=== PATIENT | female | born 1950 | race Caucasian/White ===

== ENCOUNTER 2017-09-04 20:29 | Emergency (ER) | payer MEDICARE, MEDICAID ==
[2017-09-04] MEDS ORDERED: Sodium Chloride 0.9% 10 ML Syringe FLUSH PRN (20:50)
[2017-09-04] MEDS ORDERED: Sodium Chloride 0.9% 500 ML IV ONE (20:50)
[2017-09-04] MEDS ORDERED: Metoprolol Tartrate 5 MG/5 ML SDV IVPUSH ONE (20:52)
[2017-09-04] MEDS ORDERED: LORazepam 2 MG/ML SDV IVPUSH ONE (20:52)
[2017-09-04] MEDS ORDERED: Metoprolol Tartrate 50 MG Tab PO ONE (21:14)
--- NOTE | 2017-09-04 21:37 | EDM.PDOC ---
ED HPI GENERAL MEDICAL PROBLEM - General Chief Complaint: Cardiovascular Problem Stated Complaint: DON AMB Time Seen by Provider: 09/04/17 20:38 Source of Information: Reports: Patient, EMS, RN Notes Reviewed - History of Present Illness INITIAL COMMENTS - FREE TEXT/NARRATIVE: 67-year-old female who is brought in with generalized weakness, severe dizziness. Apparently she was standing, walking been she began to become very lightheaded and dizzy. He states it felt like the room was moving around and she felt as though she were about to pass out. She did get to her phone, called her sister for help. I believe she used her lifeline type unit than to contact EMS. Upon their arrival they state she was in "SVT. They Had her Valsalva and rate did come down to the 110-120 range. She's had no chest pain or difficulty breathing. She continues to feel somewhat lightheaded and dizzy on arrival to ED. No abdominal pain nausea vomiting or diarrhea. She had been feeling fine earlier today without other unusual symptomatology. - Related Data Allergies Allergy/AdvReac Type Severity Reaction Status Date / Time No Known Allergies Allergy Verified 09/04/17 20:32 Home Meds: Home Meds Canagliflozin/Metformin HCl [Invokamet 50-500 mg Tablet] 1 tab PO BID 09/04/17 [ History] Cholecalciferol (Vitamin D3) [Vitamin D3] 1,000 unit PO DAILY 09/04/17 [History] Fluticasone Propionate [Flonase Allergy Relief] 2 spray NASBOTH DAILY 09/04/17 [ History] SitaGLIPtin [Januvia] 100 mg PO DAILY 09/04/17 [History] Valsartan/Hydrochlorothiazide [Valsartan-Hctz 160-12.5 mg Tab] 1 tab PO DAILY [History] Past Medical History HEENT History: Reports: Impaired Vision Other HEENT History: Wears glasses Cardiovascular History: Reports: Hypertension Endocrine/Metabolic History: Reports: Diabetes, Type II - Past Surgical History Endocrine Surgical History: Reports: Thyroidectomy Social & Family History - Tobacco Use Smoking Status *Q: Never Smoker - Recreational Drug Use Recreational Drug Use: No ED ROS GENERAL - Review of Systems Review Of Systems: See Below Constitutional: Denies: Fever, Chills, Diaphoresis HEENT: Denies: Throat Pain Respiratory: Denies: Shortness of Breath, Wheezing Cardiovascular: Reports: Lightheadedness, Palpitations. Denies: Chest Pain GI/Abdominal: Denies: Abdominal Pain, Nausea, Vomiting Musculoskeletal: Reports: No Symptoms Skin: Reports: No Symptoms Neurological: Reports: Dizziness. Denies: Numbness, Tingling, Trouble Speaking , Weakness ED EXAM, GENERAL - Physical Exam Exam: See Below General Appearance: Alert, Anxious Eye Exam: Bilateral Eye: PERRL, Other (Patient has disconjugate gaze, chronic) Ears: Normal External Exam Throat/Mouth: Normal Inspection, Normal Oropharynx Head: Atraumatic. No: Facial Swelling Neck: Supple, Full Range of Motion Respiratory/Chest: No Respiratory Distress, Lungs Clear, Normal Breath Sounds Cardiovascular: Tachycardia GI/Abdominal: Soft, Non-Tender. No: Guarding Back Exam: No: CVA Tenderness (L), CVA Tenderness (R) Extremities: Normal Inspection, Normal Range of Motion. No: Pedal Edema Neurological: Alert, Oriented, No Motor/Sensory Deficits Skin Exam: Warm, Dry, Normal Color EKG INTERPRETATION EKG Date: 09/04/17 Rhythm: Other (Sinus tach) Rate (Beats/Min): 109 [place]: Normal ST-T: Other (Nonspecific ST changes anterior and lateral leads) Course - Vital Signs Last Recorded V/S: Last Vital Signs Temp 96.4 F 09/04/17 20:32 Pulse 115 H 09/04/17 21:18 Resp 18 09/04/17 20:32 BP 146/96 H 09/04/17 21:18 Pulse Ox 98 09/04/17 20:32 - Orders/Labs/Meds Orders: Active Orders 24 hr Category Date Time Status EKG 12 Lead [EKG Documentation Completion] [RC] STAT Care 09/04/17 20:50 Active Holter Monitor 48 Hours [RC] .PRN Care 09/05/17 00:30 Ordered Peripheral IV Care [RC] . DIRECTED Care 09/04/17 20:51 Active Chest 1V Frontal [CR] Stat Exams 09/04/17 21:36 Taken Sodium Chloride 0.9% [Saline Flush] Med 09/04/17 20:50 Active 10 ml FLUSH ASDIRECTED PRN Peripheral IV Insertion Adult [OM.PC] Stat Oth 09/04/17 20:50 Ordered Medication Orders Sodium Chloride (Saline Flush) 10 ml FLUSH ASDIRECTED PRN PRN Reason: Keep Vein Open Last Admin: 09/04/17 21:02 Dose: 10 ml Labs: Laboratory Tests 09/04/17 09/04/17 09/04/17 Range/Units 20:38 20:40 20:40 WBC 24.75 H (3.98-10.04) K/mm3 RBC 5.94 H (3.98-5.22) M/mm3 Hgb 16.0 H (11.2-15.7) gm/L Hct 49.3 H (34.1-44.9) % MCV 83.0 (79.4-94.8) fl MCH 26.9 (25.6-32.2) pg MCHC 32.5 (32.2-35.5) g/dl RDW Std Deviation 44.1 (36.4-46.3) fL Plt Count 445 H (182-369) K/mm3 MPV 10.3 (9.4-12.3) fl Neut % (Auto) 88.3 H (34.0-71.1) % Lymph % (Auto) 4.8 L (19.3-51.7) % [place] % (Auto) 5.3 (4.7-12.5) % Eos % (Auto) 1.1 (0.7-5.8) Baso % (Auto) 0.2 (0.1-1.2) % Neut # (Auto) 21.86 H (1.56-6.13) K/mm3 Lymph # (Auto) 1.20 (1.18-3.74) K/mm3 [place] # (Auto) 1.32 H (0.24-0.36) K/mm3 Eos # (Auto) 0.26 (0.04-0.36) K/mm3 Baso # (Auto) 0.04 (0.01-0.08) K/mm3 Manual Slide Review Abnormal smear Sodium 142 (136-145) mEq/L Potassium 3.4 L (3.5-5.1) mEq/L Chloride 102 (98-107) mEq/L Carbon Dioxide 27 (21-32) mEq/L Anion Gap 16.4 H (5-15) BUN 24 H (7-18) mg/dL Creatinine 1.0 (0.55-1.02) mg/dL Est Cr Clr Drug Dosing TNP Estimated GFR (MDRD) 55 (>60) mL/min BUN/Creatinine Ratio 24.0 H (14-18) Glucose 168 H (80-115) mg/dL POC Glucose 150 H (80-115) mg/dL Calcium 9.1 (8.5-10.1) mg/dL Total Bilirubin 0.4 (0.2-1.0) mg/dL AST 26 (15-37) U/L ALT 48 (14-59) U/L Alkaline Phosphatase 118 H (46-116) U/L Total Protein 7.9 (6.4-8.2) g/dl Albumin 3.7 (3.4-5.0) g/dl Globulin 4.2 gm/dL Albumin/Globulin Ratio 0.9 L (1-2) Urine Color (Yellow) Urine Appearance (Clear) Urine pH (5.0-8.0) Ur Specific Combs (1.005-1.030) Urine Protein (Negative) Urine Glucose (UA) (Negative) Urine Ketones (Negative) Urine Occult Blood (Negative) Urine Nitrite (Negative) Urine Bilirubin (Negative) Urine Urobilinogen (0.2-1.0) Ur Leukocyte Esterase (Negative) Urine RBC (0-5) /hpf Urine WBC (0-5) /hpf Ur Epithelial Cells (0-5) /hpf Urine Bacteria (FEW) /hpf Hyaline Casts (0-5) /lpf Urine Mucus (FEW) /hpf 09/04/17 Range/Units 22:00 WBC (3.98-10.04) K/mm3 RBC (3.98-5.22) M/mm3 Hgb (11.2-15.7) gm/L Hct (34.1-44.9) % MCV (79.4-94.8) fl MCH (25.6-32.2) pg MCHC (32.2-35.5) g/dl RDW Std Deviation (36.4-46.3) fL Plt Count (182-369) K/mm3 MPV (9.4-12.3) fl Neut % (Auto) (34.0-71.1) % Lymph % (Auto) (19.3-51.7) % [place] % (Auto) (4.7-12.5) % Eos % (Auto) (0.7-5.8) Baso % (Auto) (0.1-1.2) % Neut # (Auto) (1.56-6.13) K/mm3 Lymph # (Auto) (1.18-3.74) K/mm3 [place] # (Auto) (0.24-0.36) K/mm3 Eos # (Auto) (0.04-0.36) K/mm3 Baso # (Auto) (0.01-0.08) K/mm3 Manual Slide Review Sodium (136-145) mEq/L Potassium (3.5-5.1) mEq/L Chloride (98-107) mEq/L Carbon Dioxide (21-32) mEq/L Anion Gap (5-15) BUN (7-18) mg/dL Creatinine (0.55-1.02) mg/dL Est Cr Clr Drug Dosing Estimated GFR (MDRD) (>60) mL/min BUN/Creatinine Ratio (14-18) Glucose (80-115) mg/dL POC Glucose (80-115) mg/dL Calcium (8.5-10.1) mg/dL Total Bilirubin (0.2-1.0) mg/dL AST (15-37) U/L ALT (14-59) U/L Alkaline Phosphatase (46-116) U/L Total Protein (6.4-8.2) g/dl Albumin (3.4-5.0) g/dl Globulin gm/dL Albumin/Globulin Ratio (1-2) Urine Color Yellow (Yellow) Urine Appearance Clear (Clear) Urine pH 6.5 (5.0-8.0) Ur Specific Combs 1.020 (1.005-1.030) Urine Protein Negative (Negative) Urine Glucose (UA) 2+ H (Negative) Urine Ketones 1+ H (Negative) Urine Occult Blood Negative (Negative) Urine Nitrite Negative (Negative) Urine Bilirubin Negative (Negative) Urine Urobilinogen 0.2 (0.2-1.0) Ur Leukocyte Esterase Negative (Negative) Urine RBC 0-5 (0-5) /hpf Urine WBC 0-5 (0-5) /hpf Ur Epithelial Cells 0-5 (0-5) /hpf Urine Bacteria Rare (FEW) /hpf Hyaline Casts 0-5 (0-5) /lpf Urine Mucus Few (FEW) /hpf Meds: Medications Generic Name Dose Route Start Last Admin Trade Name Panchito PRN Reason Stop Dose Admin Sodium Chloride 10 ml 09/04/17 20:50 09/04/17 21:02 Saline Flush FLUSH 10 ml ASDIRECTED PRN Administration Keep Vein Open Discontinued Medications Generic Name Dose Route Start Last Admin Trade Name Panchito PRN Reason Stop Dose Admin Sodium Chloride 500 mls @ 999 mls/hr 09/04/17 20:50 09/04/17 21:01 Normal Saline IV 09/04/17 21:20 999 mls/hr .BOLUS ONE Administration Lorazepam 0.25 mg 09/04/17 20:52 09/04/17 21:01 Ativan IVPUSH 09/04/17 20:53 0.25 mg ONETIME ONE Administration Metoprolol Tartrate 5 mg 09/04/17 20:52 09/04/17 21:01 Lopressor IVPUSH 09/04/17 20:53 5 mg ONETIME ONE Administration Metoprolol Tartrate 50 mg 09/04/17 21:14 09/04/17 21:18 Lopressor PO 09/04/17 21:15 50 mg ONETIME ONE Administration - Re-Assessments/Exams Free Text/Narrative Re-Assessment/Exam: 09/05/17 00:01 Patient was in sinus tach on arrival to ED, rate about 110-120. Rate then did go even up to 1:30. At that Time we did give lopressor 5 mg IV followed by metoprolol 50 mg by mouth. With that her rate has come down to the upper 90s. Blood pressure has remained good. We've given 1 L of normal saline. WBC did come back elevated. With that even though she has no apparent signs for infection I have checked chest x-ray, catheter urine and also influenza screen. That all did come back normal. She feels tremendously better. She has been able to stand and ambulate without difficulty. Will send home with 48 hr holter moniter if available. Departure - Departure Time of Disposition: 23:55 Disposition: Home, Self-Care 01 Condition: Fair Clinical Impression: Near syncope, Supraventricular tachycardia Referrals: PCP,None [Primary Care Provider] - Forms: ED Department Discharge Additional Instructions: Upon ambulance arrival your heart rate was going quite fast and that very likely contributed to the severe dizziness you felt at that time. We are sending you home with a 48 hour Holter monitor to record your heart activity for the next 48 hours. Continue to drink plenty of water to maintain hydration. Follow-up with your regular medical provider early next week for recheck, return to ED as needed if symptoms worsening in any way. - My Orders Last 24 Hours: My Active Orders 09/04/17 20:50 EKG 12 Lead [EKG Documentation Completion] [RC] STAT Sodium Chloride 0.9% [Saline Flush] 10 ml FLUSH ASDIRECTED PRN Peripheral IV Insertion Adult [OM.PC] Stat 09/04/17 20:51 Peripheral IV Care [RC] . DIRECTED 09/04/17 21:36 Chest 1V Frontal [CR] Stat 09/05/17 00:30 Holter Monitor 48 Hours [RC] .PRN - Assessment/Plan Last 24 Hours: My Active Orders 09/04/17 20:50 EKG 12 Lead [EKG Documentation Completion] [RC] STAT Sodium Chloride 0.9% [Saline Flush] 10 ml FLUSH ASDIRECTED PRN Peripheral IV Insertion Adult [OM.PC] Stat 09/04/17 20:51 Peripheral IV Care [RC] . DIRECTED 09/04/17 21:36 Chest 1V Frontal [CR] Stat 09/05/17 00:30 Holter Monitor 48 Hours [RC] .PRN
--- NOTE | 2017-09-05 10:05 | CR ---
Chest: Portable view of the chest was obtained. Comparison: No prior chest x-ray. Heart size is normal. Tortuous thoracic aorta is seen. Lungs are clear. Bony structures are grossly intact. Impression: 1. Nothing acute is identified on portable chest x-ray. Diagnostic code #1
== END 2017-09-05 00:37 | disposition home or self-care (01) ==
LOC: JD.ED 20:29
DX: R55 Syncope and collapse (principal); I47.1 Supraventricular tachycardia; I10 Essential (primary) hypertension; E11.9 Type 2 diabetes mellitus without complications; Z79.899 Other long term (current) drug therapy
CPT/HCPCS: 36415; 71045; 80053; 81001; 82962; 85025; 87804; 93005; 93225; 93226; 96361; 96374; 96375; 99285; A9270; J2060; J7040; J7050; P9612; 93010; 99284-25; J3490

== ENCOUNTER 2018-03-24 17:09 | Emergency (ER) | payer OTHER, MEDICARE, MEDICAID ==
[2018-03-24] MEDS ORDERED: Lidocaine 1% with EPINEPHrine 1:100,000 20 ML MDV INJECT ONE (17:30)
--- NOTE | 2018-03-24 17:53 | EDM.PDOC ---
ED HPI GENERAL MEDICAL PROBLEM - General Chief Complaint: Laceration Stated Complaint: LIP LAC Time Seen by Provider: 03/24/18 17:20 Source of Information: Reports: Patient, Family History Limitations: Reports: Other (Mentally handicapped) - History of Present Illness INITIAL COMMENTS - FREE TEXT/NARRATIVE: Patient is a 68-year-old female presents ED complaining of lower lip laceration. Patient was helping set tables up and fell on a incline hitting her face on the ground. There was no loss of consciousness. She suffered a irregular laceration to the lower lip with bleeding controlled with direct pressure. Abrasion to the upper lip and nose. There was no loss consciousness. Patient denies any additional discomfort to her face, neck, chest, extremities. There is no nausea or vomiting. No numbness or tingling to extremities. She did ambulate into the ED on her own accord. lower lip Pain Score (Numeric/FACES): 4 - Related Data Allergies Allergy/AdvReac Type Severity Reaction Status Date / Time No Known Allergies Allergy Verified 03/24/18 17:18 Home Meds: Home Meds Canagliflozin/Metformin HCl [Invokamet 50-500 mg Tablet] 1 tab PO BID 09/04/17 [ History] Cholecalciferol (Vitamin D3) [Vitamin D3] 1,000 unit PO DAILY 09/04/17 [History] Fluticasone Propionate [Flonase Allergy Relief] 2 spray NASBOTH DAILY 09/04/17 [ History] SitaGLIPtin [Januvia] 100 mg PO DAILY 09/04/17 [History] Valsartan/Hydrochlorothiazide [Valsartan-Hctz 160-12.5 mg Tab] 1 tab PO DAILY [History] Past Medical History HEENT History: Reports: Impaired Vision Other HEENT History: Wears glasses Cardiovascular History: Reports: Hypertension Psychiatric History: Reports: Learning Disability Endocrine/Metabolic History: Reports: Diabetes, Type II - Past Surgical History Endocrine Surgical History: Reports: Thyroidectomy Social & Family History - Family History Family Medical History: Noncontributory - Tobacco Use Smoking Status *Q: Never Smoker - Caffeine Use Caffeine Use: Reports: Coffee - Recreational Drug Use Recreational Drug Use: No ED ROS GENERAL - Review of Systems Review Of Systems: ROS reveals no pertinent complaints other than HPI. ED EXAM, SKIN/RASH Exam: See Below Exam Limited By: No Limitations General Appearance: Alert, WD/WN, No Apparent Distress Eye Exam: Bilateral Eye: EOMI, Normal Inspection, Nystagmus (None noted), PERRL Ears: Hearing Grossly Normal Nose: Nasal Tenderness, Other (Slight abrasion noted to the distal tip of the nose. No epistaxis.) Throat/Mouth: Normal Oropharynx, Normal Voice, No Airway Compromise. No: Normal Lips (Approximate 0.5 UA are laceration to the lower lip. Teeth are intact with no loose or tenderness noted to the upper and lower palate.) Head: Other (Superficial abrasion to the upper lip and tip of the nose. No tenderness noted with palpation of the facies.) Neck: Normal Inspection, Supple, Non-Tender, Full Range of Motion Respiratory/Chest: No Respiratory Distress, Lungs Clear, Normal Breath Sounds, No Accessory Muscle Use Cardiovascular: Normal Peripheral Pulses, Regular Rate, Rhythm Peripheral Pulses: 2+: Radial (L) GI/Abdominal: Normal Bowel Sounds, Soft, Non-Tender Back Exam: Normal Inspection Extremities: Normal Inspection, Normal Range of Motion, Non-Tender Neurological: Alert, Oriented, CN II-XII Intact, Normal Cognition, Normal Gait, No Motor/Sensory Deficits Psychiatric: Normal Affect, Normal Mood Skin: Warm, Dry, Normal Color ED SKIN PROCEDURES - Laceration/Wound Repair Lower Other Lac/Wound length In cm: 0.5 (lower lip) Appearance: Subcutaneous, Irregular, Clean Distal NVT: Neuro & Vascular Intact, No Tendon Injury Anesthetic Type: Local Local Anesthesia - Lidocaine (Xylocaine): 1% with EPI Local Anesthetic Volume: 2cc Skin Prep: Saline, Sterile Drape Exploration/Debridement/Repair: Wound Explored, In a Bloodless Field, Explored to Base, No Foreign Material Found Closed with: Sutures Suture Size: 4-0 # of Sutures: 2 Suture Type: Interrupted (vicryl), Simple Course - Vital Signs Last Recorded V/S: Last Vital Signs Temp 98 F 03/24/18 17:15 Pulse 80 03/24/18 17:15 Resp 20 03/24/18 17:15 BP 164/82 H 03/24/18 17:15 Pulse Ox 98 03/24/18 17:15 - Orders/Labs/Meds Meds: Medications Discontinued Medications Generic Name Dose Route Start Last Admin Trade Name Freq PRN Reason Stop Dose Admin Lidocaine/Epinephrine 20 ml 03/24/18 17:30 08/21/18 17:38 Xylocaine 1% With Epinephrine 1:100,000 INJECT 03/24/18 17:31 20 ml ONETIME ONE Administration - Re-Assessments/Exams Free Text/Narrative Re-Assessment/Exam: Lip laceration will require closure by primary intention due to the depth and length of the laceration. I have ordered lidocaine with epi. Laceration closed by primary intention's. No complications. Tetanus status up-to -date. Departure - Departure Time of Disposition: 17:56 Disposition: Home, Self-Care 01 Condition: Good Clinical Impression: Contusion Laceration of lip Qualifiers: Encounter type: initial encounter Qualified Code(s): S01.511A - Laceration without foreign body of lip, initial encounter Facial abrasion Qualifiers: Encounter type: initial encounter Qualified Code(s): S00.81XA - Abrasion of other part of head, initial encounter - Discharge Information Instructions: Mouth Laceration, [id number], Sutured Wound Care, [id number] Referrals: Tip Berg MD [Primary Care Provider] - Forms: ED Department Discharge Additional Instructions: Allow sutures to fall out on their own accord. Rinse mouth out after each meal. Keep area clean. Cleanse abrasions twice daily with soap and water, pat dry, reapply triple anabolic ointment. Utilize Tylenol and Motrin and alternate fashion for discomfort. May apply ice to affected areas as needed. Return to the ED if you develop any new or worsening symptoms.
== END 2018-03-24 18:45 | disposition home or self-care (01) ==
LOC: JD.ED 17:09
DX: S01.511A Laceration without foreign body of lip, initial encounter (principal); S00.81XA Abrasion of other part of head, initial encounter; Z79.899 Other long term (current) drug therapy; W01.10XA Fall on same level from slipping, tripping and stumbling with subsequent striking against unspecified object, initial encounter
CPT/HCPCS: 12011; 99283-25